=== PATIENT | male | born 1960 | race Caucasian/White ===

== ENCOUNTER 2017-05-25 19:58 | Inpatient (IN) | payer BC, OTHER ==
[2017-05-25 20:59] LABS: POC GLUCOSE 115 mg/dL (70-99)
[2017-05-25] MEDS ORDERED: AMITRIPTYLINE HCL 25 MG TABLET. PO (23:45)
[2017-05-25] MEDS ORDERED: DEXTROSE 50% 25 GM / 50ML DISP.SYRIN. IV (23:45)
[2017-05-26] MEDS: PIPERACILLIN/TAZOBACTAM 3.375 GM in IV NORMAL SALINE 50ML 50 ML IV ×4 (00:56→17:28)
[2017-05-26] MEDS: VANCOMYCIN PER PHARMACY MC ×2 (01:08→14:07)
[2017-05-26] MEDS: VANCOMYCIN 1.75 GM in IV DEXTROSE 5 %-0.2 % NACL 500 ML IV ×2 (02:34→14:03)
[2017-05-26] MEDS: HYDROcodone/APAP 5/325MG 1 TAB TABLET PO ×3 (02:35→17:27)
[2017-05-26 08:09] LABS: POC GLUCOSE 157 mg/dL (70-99)
[2017-05-26] MEDS: metFORMIN 850 MG TABLET PO ×3 (09:02→17:27)
[2017-05-26] MEDS: PREGABALIN 75 MG CAPSULE PO (09:04)
[2017-05-26] MEDS: METOPROLOL TART IMMED RELEASE 25 MG TABLET. PO ×2 (09:07→22:16)
[2017-05-26] MEDS: LISINOPRIL 20 MG TABLET PO (09:08)
[2017-05-26] MEDS: INSULIN DETEMIR 300 UNITS/3 ML INSULN.PEN. SQ ×2 (09:18→22:22)
[2017-05-26] MEDS: INSULIN ASPART 300 UNITS/3 ML INSULN.PEN SQ ×3 (09:24→17:00)
[2017-05-26 11:45] LABS: POC GLUCOSE 134 mg/dL (70-99)
[2017-05-26] MEDS: ENOXAPARIN 40 MG/0.4 ML SYRINGE. SQ (12:31)
[2017-05-26] MEDS: LACTOBACILLUS RHAMNOSUS GG 1 CAPSULE. PO ×2 (14:54→22:16)
[2017-05-26 16:20] LABS: ADD MAN DIFF? NO
[2017-05-26 16:22] LABS: BASO # 0.1 x10^3/uL (0.0-0.2); BASO % 1 % (0-3); EOS # 0.2 x10^3/uL (0.0-0.7); EOS % 2 % (0-3); HEMATOCRIT 30.6 % (39.0-53.0); HEMOGLOBIN 10.3 g/dL (13.0-17.5); LYMPH # 1.7 x10^3/uL (1.0-4.8); LYMPH % 20 % (24-48); MEAN CORPUSCULAR HEMOGLOBIN 28 pg (25-35); MEAN CORPUSCULAR HGB CONC 34 g/dL (31-37); MEAN CORPUSCULAR VOLUME 84 fL (79-100); MONO # 0.6 x10^3/uL (0.0-1.1); MONO % 8 % (0-9); NEUT # 5.7 x10^3uL (1.8-7.7); NEUT % 69 % (31-73); PLATELET COUNT 339 x10^3/uL (140-400); RED BLOOD COUNT 3.63 x10^6/uL (4.30-5.70); RED CELL DISTRIBUTION WIDTH 13.1 % (11.5-14.5); WHITE BLOOD COUNT 8.3 x10^3/uL (4.0-11.0)
[2017-05-26 16:28] LABS: POC GLUCOSE 146 mg/dL (70-99)
[2017-05-26 16:41] LABS: ALBUMIN 2.1 g/dL (3.4-5.0); ALBUMIN/GLOBULIN RATIO 0.5 (1.0-1.7); ALK PHOS 535 U/L (46-116); ALT (SGPT) 39 U/L (16-63); ANION GAP 10 (6-14); AST (SGOT) 53 U/L (15-37); BLOOD UREA NITROGEN 17 mg/dL (8-26); BUN/CREATININE RATIO 11 (6-20); CALCIUM 8.8 mg/dL (8.5-10.1); CARBON DIOXIDE 28 mmol/L (21-32); CHLORIDE 104 mmol/L (98-107); CREATININE 1.5 mg/dL (0.7-1.3); GFR 48.6; GLUCOSE 174 mg/dL (70-99); POTASSIUM 3.4 mmol/L (3.5-5.1); SODIUM 142 mmol/L (136-145); TOTAL BILIRUBIN 0.1 mg/dL (0.2-1.0); TOTAL PROTEIN 6.6 g/dL (6.4-8.2)
[2017-05-26] MEDS ORDERED: ENOXAPARIN 40 MG/0.4 ML SYRINGE. SQ (17:00)
[2017-05-26 17:23] LABS: MAGNESIUM 1.4 mg/dL (1.8-2.4)
[2017-05-26] MEDS: MAGNESIUM OXIDE 400 MG TABLET PO (18:34)
[2017-05-26 20:59] LABS: POC GLUCOSE 151 mg/dL (70-99)
[2017-05-26] MEDS: SIMVASTATIN 20 MG TABLET PO (22:16)
[2017-05-27] MEDS: PIPERACILLIN/TAZOBACTAM 3.375 GM in IV NORMAL SALINE 50ML 50 ML IV ×3 (00:04→11:47)
[2017-05-27] MEDS: VANCOMYCIN 1.75 GM in IV DEXTROSE 5 %-0.2 % NACL 500 ML IV ×2 (02:49→15:00)
[2017-05-27 04:22] LABS: MRSA BY PCR Negative (Negative)
[2017-05-27] MEDS: INSULIN ASPART 300 UNITS/3 ML INSULN.PEN SQ ×3 (08:00→16:58)
[2017-05-27 08:03] LABS: POC GLUCOSE 104 mg/dL (70-99)
[2017-05-27] MEDS: LACTOBACILLUS RHAMNOSUS GG 1 CAPSULE. PO ×2 (08:34→21:47)
[2017-05-27] MEDS: metFORMIN 850 MG TABLET PO ×3 (08:34→17:10)
[2017-05-27] MEDS: METOPROLOL TART IMMED RELEASE 25 MG TABLET. PO ×2 (08:35→21:00)
[2017-05-27] MEDS: PREGABALIN 75 MG CAPSULE PO (08:35)
[2017-05-27] MEDS: LISINOPRIL 20 MG TABLET PO (08:36)
[2017-05-27] MEDS: ONDANSETRON PF 4 MG/2 ML VIAL. IV ×2 (08:37→21:47)
[2017-05-27] MEDS: INSULIN DETEMIR 300 UNITS/3 ML INSULN.PEN. SQ ×2 (08:42→21:00)
[2017-05-27] MEDS: MAGNESIUM OXIDE 400 MG TABLET PO (08:48)
[2017-05-27 11:19] LABS: POC GLUCOSE 104 mg/dL (70-99)
[2017-05-27] MEDS: ENOXAPARIN 40 MG/0.4 ML SYRINGE. SQ (11:47)
[2017-05-27] MEDS: POTASSIUM CHLORIDE 20 MEQ TABLET.ER. PO (12:18)
[2017-05-27] MEDS: MAGNESIUM SULFATE 2GM 50 ML IV (12:18)
[2017-05-27] MEDS: HYDROcodone/APAP 5/325MG 1 TAB TABLET PO ×2 (12:33→21:47)
[2017-05-27 14:51] LABS: VANC TR 24.4 mcg/mL (10.0-20.0)
[2017-05-27] MEDS: VANCOMYCIN PER PHARMACY MC (15:30)
[2017-05-27 16:48] LABS: POC GLUCOSE 119 mg/dL (70-99)
[2017-05-27 20:58] LABS: POC GLUCOSE 117 mg/dL (70-99)
[2017-05-27] MEDS ORDERED: VANCOMYCIN 1.25 GM in IV DEXTROSE 5 %-0.2 % NACL 250 ML IV (21:00)
[2017-05-27] MEDS: LINEZOLID 600 MG TABLET PO (21:36)
[2017-05-27] MEDS: MUPIROCIN 2 % TOPICAL CREAM 15GM TUBE. TP (21:36)
[2017-05-27] MEDS: SIMVASTATIN 20 MG TABLET PO (21:36)
[2017-05-28 05:42] LABS: ADD MAN DIFF? NO
[2017-05-28 05:47] LABS: BASO % 0 % (0-3); EOS # 0.1 x10^3/uL (0.0-0.7); EOS % 1 % (0-3); HEMATOCRIT 30.2 % (39.0-53.0); HEMOGLOBIN 10.2 g/dL (13.0-17.5); LYMPH # 1.2 x10^3/uL (1.0-4.8); LYMPH % 16 % (24-48); MEAN CORPUSCULAR HEMOGLOBIN 28 pg (25-35); MEAN CORPUSCULAR HGB CONC 34 g/dL (31-37); MEAN CORPUSCULAR VOLUME 84 fL (79-100); MONO # 0.6 x10^3/uL (0.0-1.1); MONO % 8 % (0-9); NEUT # 5.5 x10^3uL (1.8-7.7); NEUT % 74 % (31-73); PLATELET COUNT 325 x10^3/uL (140-400); RED BLOOD COUNT 3.59 x10^6/uL (4.30-5.70); RED CELL DISTRIBUTION WIDTH 12.8 % (11.5-14.5); WHITE BLOOD COUNT 7.5 x10^3/uL (4.0-11.0)
[2017-05-28 06:03] LABS: ANION GAP 6 (6-14); BLOOD UREA NITROGEN 18 mg/dL (8-26); CALCIUM 8.8 mg/dL (8.5-10.1); CARBON DIOXIDE 30 mmol/L (21-32); CHLORIDE 107 mmol/L (98-107); CREATININE 1.2 mg/dL (0.7-1.3); GFR 62.9; GLUCOSE 149 mg/dL (70-99); SODIUM 143 mmol/L (136-145)
[2017-05-28 07:55] LABS: POC GLUCOSE 132 mg/dL (70-99)
[2017-05-28] MEDS: INSULIN DETEMIR 300 UNITS/3 ML INSULN.PEN. SQ (08:00)
[2017-05-28] MEDS: INSULIN ASPART 300 UNITS/3 ML INSULN.PEN SQ ×2 (08:00→12:00)
[2017-05-28] MEDS: MUPIROCIN 2 % TOPICAL CREAM 15GM TUBE. TP ×2 (08:36→13:40)
[2017-05-28] MEDS: ONDANSETRON PF 4 MG/2 ML VIAL. IV (08:36)
[2017-05-28] MEDS: LACTOBACILLUS RHAMNOSUS GG 1 CAPSULE. PO (11:21)
[2017-05-28] MEDS: metFORMIN 850 MG TABLET PO (11:21)
[2017-05-28] MEDS: LISINOPRIL 20 MG TABLET PO (11:23)
[2017-05-28] MEDS: MAGNESIUM OXIDE 400 MG TABLET PO (11:23)
[2017-05-28] MEDS: LINEZOLID 600 MG TABLET PO (11:23)
[2017-05-28] MEDS: METOPROLOL TART IMMED RELEASE 25 MG TABLET. PO (11:23)
[2017-05-28] MEDS: PREGABALIN 75 MG CAPSULE PO (11:24)
[2017-05-28 12:14] LABS: POC GLUCOSE 131 mg/dL (70-99)
[2017-05-28] MEDS: ENOXAPARIN 40 MG/0.4 ML SYRINGE. SQ (13:11)
[2017-05-28] MEDS ORDERED: AMITRIPTYLINE HCL 10 MG TABLET. PO (14:49)
== END 2017-05-28 16:10 | disposition home or self-care (01) | DRG 602 ==
LOC: 5 NORTH 19:58
PROVIDERS: Internal Medicine
DX: L03.811 Cellulitis of head [any part, except face] (principal); E43 Unspecified severe protein-calorie malnutrition; E11.22 Type 2 diabetes mellitus with diabetic chronic kidney disease; L02.811 Cutaneous abscess of head [any part, except face]; N18.3 Chronic kidney disease, stage 3 (moderate); E66.9 Obesity, unspecified; E78.5 Hyperlipidemia, unspecified; E11.65 Type 2 diabetes mellitus with hyperglycemia; E83.42 Hypomagnesemia; E87.6 Hypokalemia; I12.9 Hypertensive chronic kidney disease with stage 1 through stage 4 chronic kidney disease, or unspecified chronic kidney disease; Z68.33 Body mass index [BMI] 33.0-33.9, adult; Z80.1 Family history of malignant neoplasm of trachea, bronchus and lung; Z82.49 Family history of ischemic heart disease and other diseases of the circulatory system
CPT/HCPCS: 36415; 80048; 80053; 80202; 82962; 83036; 83735; 85025; 87641; J1650; J1815; J2405; J2543; J3370; J3475